=== PATIENT | female | born 2000 | race Caucasian/White ===

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

== ENCOUNTER 2021-08-31 01:27 | Inpatient (IN) | payer BC, MEDICAID ==
[2021-08-31] VITALS (64 sets, daily range): BP systolic 102–151; BP diastolic 57–105
[~2021-08-31] VITALS: Ht 170.2 cm; Wt 94.7 kg
[2021-08-31] MEDS ORDERED: D5 LR IV SOLUTION 1,000 ML IV ONE (03:40)
[2021-08-31] MEDS ORDERED: LIDOCAINE/EPI 2% 1:200,00 (XYLOCAINE) 20 ML VIAL INJ PRN (03:45)
[2021-08-31] MEDS ORDERED: MINERAL OIL CONCENTRATE 99.9% 15 ML UDC TOP PRN (03:45)
[2021-08-31] MEDS: D5 LR IV SOLUTION 1,000 ML IV SCH ×2 (03:54→11:46)
[2021-08-31] MEDS ORDERED: BUTORPHANOL INJ 2 MG/ML (STADOL) VIAL ONE (04:30)
[2021-08-31] MEDS ORDERED: BUTORPHANOL INJ 2 MG/ML (STADOL) VIAL IV ONE (04:30)
[2021-08-31 05:17] LABS: BASOPHILS % (AUTO) 0 % (0-10); EOSINOPHILS # (AUTO) 0.1 10^3/uL (0.0-0.3); EOSINOPHILS % (AUTO) 1 % (0-10); HEMATOCRIT 34 % (35-52); LYMPHOCYTES % (AUTO) 29 % (12-44); MEAN CORPUSCULAR HEMOGLOBIN 28 pg (25-34); MEAN CORPUSCULAR HGB CONC 33 g/dL (32-36); MEAN CORPUSCULAR VOLUME 87 fL (80-99); MEAN PLATELET VOLUME 12.6 fL (9.0-12.2); MONOCYTES # (AUTO) 0.7 10^3/uL (0.0-1.0); MONOCYTES % (AUTO) 7 % (0-12); NEUTROPHILS # (AUTO) 6.7 10^3/uL (1.8-7.8); NEUTROPHILS % (AUTO) 63 % (42-75); PLATELET COUNT 248 10^3/uL (130-400); WHITE BLOOD COUNT 10.7 10^3/uL (4.3-11.0)
[2021-08-31] MEDS ORDERED: CATHETER FLUSH 10 ML SYR IV SCH ×2 (06:00→22:00)
[2021-08-31] MEDS ORDERED: OXYTOCIN PRE-MIX DRIP 500 ML IV SCH ×2 (07:30→17:45)
[2021-08-31] MEDS ORDERED: fentaNYL 2 mcg/ml BUPIVA 0.125 100 ML ONE (07:50)
[2021-08-31] MEDS ORDERED: fentaNYL INJ 100 MCG/2 ML AMP ONE (08:03)
[2021-08-31] MEDS ORDERED: BUPIVACAINE 0.25% 30 ML (SENSORCAINE) VIAL ONE (08:03)
[2021-08-31] MEDS ORDERED: KETOROLAC 30 MG/ML VIAL ONE (08:09)
[2021-08-31] MEDS ORDERED: ONDANSETRON 4 MG/2 ML (SDV) Z0FRAN ONE (08:27)
[2021-08-31] MEDS ORDERED: LACTATED RINGERS 1,000 ML IV ONE (10:30)
[2021-08-31] MEDS ORDERED: NALOXONE 0.4 MG/ML 1 ML (NARCAN) VIAL IV PRN (10:30)
[2021-08-31] MEDS ORDERED: CATHETER FLUSH 10 ML SYR IV PRN (10:30)
[2021-08-31] MEDS ORDERED: fentaNYL 2 mcg/ml BUPIVA 0.125 100 ML IV SCH (10:30)
[2021-08-31] MEDS ORDERED: ONDANSETRON 4 MG/2 ML (SDV) Z0FRAN IVP ONE (10:30)
--- NOTE | 2021-08-31 14:39 | Labor Progress Note ---
Labor Progress Note Labor Progress Note Date Seen by Provider: Aug 31, 2021 Time Seen by Provider: 14:10 Subjective: Pt denies complaints. Objective: Cervical exam: 6.5/75/-3 Consistency: soft Position: anterior Presentation: vertex heart tones: 140 beats per minute, moderate variability, reactive Tocometer: 4 ctx/10 minutes Assessment/Plan: Maureen Causey is a (21 /Para 2 / 1,Gestational Age (wks)39 here for labor. CEFM/TOCO Continue pitocin/AROM done at time of exam with clear fluid Anesthesia: Epidural Anticipate vaginal delivery. Vitals - Labs Vital Signs - I&O Vital Signs Date Time Temp Pulse Resp B/P (MAP) Pulse Ox O2 Delivery O2 Flow Rate FiO2 08/31/21 12:43 83 18 111/64 (80) Room Air 08/31/21 12:28 81 18 115/66 (82) Room Air 08/31/21 12:15 89 18 118/70 (86) Room Air 08/31/21 11:59 96 18 121/79 (93) Room Air 08/31/21 11:46 37.0 08/31/21 11:43 98 18 132/75 (94) 99 Room Air 08/31/21 11:29 86 18 127/67 (87) 98 Room Air 08/31/21 11:12 91 18 130/64 (86) 99 Room Air 08/31/21 10:58 84 18 126/75 (92) 98 Room Air 08/31/21 10:42 76 18 119/67 (84) 99 Room Air 08/31/21 10:29 70 18 125/70 (88) 98 Room Air 08/31/21 10:13 77 18 128/74 (92) 99 Room Air 08/31/21 09:58 98 18 131/77 (95) 99 Room Air 08/31/21 09:44 77 18 124/71 (88) 99 Room Air 08/31/21 09:28 82 18 127/71 (89) 99 Room Air 08/31/21 09:08 91 18 118/78 (91) 99 Room Air 08/31/21 09:03 88 18 115/73 (87) 100 Room Air 08/31/21 08:58 80 18 123/67 (85) 99 Room Air 08/31/21 08:52 79 18 120/68 (85) 98 Room Air 08/31/21 08:47 81 18 119/66 (83) 97 Room Air 08/31/21 08:44 73 18 121/67 (85) 96 Room Air 08/31/21 08:39 85 18 114/64 (81) 98 Room Air 08/31/21 08:31 75 18 118/58 (78) Room Air 08/31/21 08:28 67 18 122/57 (78) 97 Room Air 08/31/21 08:25 81 18 124/75 (91) Room Air 08/31/21 08:22 87 18 127/80 (96) Room Air 08/31/21 08:19 95 18 128/83 (98) 99 Room Air 08/31/21 08:16 82 18 136/84 (101) 98 Room Air 08/31/21 08:13 80 145/81 (102) 100 Room Air 08/31/21 08:10 81 18 143/97 (112) 100 Room Air 08/31/21 07:30 37.1 08/31/21 04:26 37.4 91 18 151/77 (101) Room Air 08/31/21 03:56 37.1 96 18 133/83 (100) Room Air 08/31/21 02:05 90 18 140/81 (100) Room Air 08/31/21 02:00 36.7 103 18 99 Room Air 08/31/21 02:00 36.7 103 18 99 Room Air 08/31/21 02:00 36.7 103 18 146/90 (108) 99 Room Air Labs Laboratory Tests 08/31/21 04:10: White Blood Count 10.7, Red Blood Count 3.87, Hemoglobin 11.0L, Hematocrit 34L, Mean Corpuscular Volume 87, Mean Corpuscular Hemoglobin 28, Mean Corpuscular Hemoglobin Concent 33, Red Cell Distribution Width 14.7H, Platelet Count 248, Mean Platelet Volume 12.6H, Immature Granulocyte % (Auto) 1, Neutrophils (%) (Auto) 63, Lymphocytes (%) (Auto) 29, Monocytes (%) (Auto) 7, Eosinophils (%) (Auto) 1, Basophils (%) (Auto) 0, Neutrophils # (Auto) 6.7, Lymphocytes # (Auto) 3.0, Monocytes # (Auto) 0.7, Eosinophils # (Auto) 0.1, Basophils # (Auto) 0.0, Immature Granulocyte # (Auto) 0.1 HARSH STEVENS MD Aug 31, 2021 14:39
[2021-08-31] MEDS ORDERED: LIDOCAINE 1% INJ 20 ML 20 ML VIAL ONE (16:30)
[2021-08-31] MEDS ORDERED: METHYLERGONOVINE 0.2 MG/ML (METHERGINE) AMP ONE (16:38)
--- NOTE | 2021-08-31 17:23 | History & Physical-OB ---
OB - Chief Complaint & HPI Date/Time Date of Admission: Date of Admission: Aug 31, 2021 at 03:18 Date seen by a Provider: Aug 31, 2021 Time Seen by a Provider: 15:48 Chief Complaint/History OB-Reason for Admission/Chief: Onset of Labor Hx : 2 Hx Para: 1 Expected Date of Delivery: Sep 01, 2021 Gestational Age in Weeks: 40 Gestational Age in Days: 0 History of Labs A+, Ab neg, Rub NON IMMUNE HIV/RPR/HepB/C GTT Normal GBS Neg Allergies and Home Medications Allergies Uncoded Allergies: sulfa (Allergy, Unknown, rash, 08/27/19) Patient Home Medication List Home Medication List Reviewed: Yes OB - History Hx of Present Care: Yes Ultrasounds: Normal mid trimester US Obstetrical Complications: None Medical Complications: None Information Induced Hypertension: No Maternal Gestational Diabetes: No Hemorrhage: No Obstetrical History Hx : 2 Hx Para: 1 Hx # Term Pregnancies: 1 Number of Living Children: 1 Hx Total # of Abortions (Spona: 1 Delivery History Hx Dystocia: No Hx Forceps Assisted Delivery: No Hx Vacuum Extraction Assisted: No Hx Placenta Abnormality: No Hx Distress: No Hx Large For Gestational Age I: No Hx Small for Gestational Age I: No Hx Section: No Hx Vaginal Delivery Post C-Sec: No Hx Blood Disorders: No Adverse Rxn to Tranfusion: No Patient Past Medical History None Social History/Family History Alcohol Use: Denies Use Recreational Drug Use: No 2nd Hand Smoke Exposure: No Immunizations Tetanus Booster (TDap): Less than 5yrs (06/17/21) Rubella: not immune RPR/VDRL: Negative GBS Status: Negative HBsAG: Negative OB - Admission Exam Physical Exam Vitals: Vital Signs 08/31/21 08/31/21 08/31/21 11:43 15:05 15:12 Temp 37.2 Pulse 101 Resp 18 B/P (MAP) 127/68 (87) Pulse Ox 99 O2 Delivery Room Air HEENT: NCAT Heart: Rhythm Normal Lungs: Clear Abdomen: Gravid Cervical Dilatation: 10cm Effacement: 100% Station: +1 Membranes: Ruptured Amniotic Fluid: Clear Heart Rate: 130's Accelerations: Accelerations Present Decelerations: Early Decelerations Short Term Variability: Present Shelter Variability: Average (6-25) Contractions on Admission: < 5 Minutes Apart Intensity: Firm Labs Laboratory Tests Test 08/31/21 04:10 Range/Units White Blood Count 10.7 4.3-11.0 10^3/uL Red Blood Count 3.87 3.80-5.11 10^6/uL Hemoglobin 11.0 L 11.5-16.0 g/dL Hematocrit 34 L 35-52 % Mean Corpuscular Volume 87 80-99 fL Mean Corpuscular Hemoglobin 28 25-34 pg Mean Corpuscular Hemoglobin Concent 33 32-36 g/dL Red Cell Distribution Width 14.7 H 10.0-14.5 % Platelet Count 248 130-400 10^3/uL Mean Platelet Volume 12.6 H 9.0-12.2 fL Immature Granulocyte % (Auto) 1 % Neutrophils (%) (Auto) 63 42-75 % Lymphocytes (%) (Auto) 29 12-44 % Monocytes (%) (Auto) 7 0-12 % Eosinophils (%) (Auto) 1 0-10 % Basophils (%) (Auto) 0 0-10 % Neutrophils # (Auto) 6.7 1.8-7.8 10^3/uL Lymphocytes # (Auto) 3.0 1.0-4.0 10^3/uL Monocytes # (Auto) 0.7 0.0-1.0 10^3/uL Eosinophils # (Auto) 0.1 0.0-0.3 10^3/uL Basophils # (Auto) 0.0 0.0-0.1 10^3/uL Immature Granulocyte # (Auto) 0.1 0.0-0.1 10^3/uL OB - Assessment/Plan/Diagnosis Assessment Assessment: active labor Admission Dx Third Trimester 40 week gestation Active labor Admission Status: Inpatient Order (span 2 midnights) Reason for Inpatient Admission: Labor Plan Other Plan 21 yo @ 40.0 wga here in active labor Plan - Epidural for pain control - GBS neg - Augmented labor with pitocin Copy Copies To 1: KELLY NERI MD, HOLLY R MD Aug 31, 2021 17:23
--- NOTE | 2021-08-31 17:31 | OB Labor & Delivery Record ---
Vag Delivery Note Vag Delivery Note Date of Delivery: 08/31/21 Preoperative Diagnosis: Maureen Causey is a (21 /Para 2 / 1,Gestational Age (wks)40.0 wga here in active labor Postoperative Diagnosis: Same Surgeon: KELLY DE LA CRUZ MD Finished Cigar Maker: None Anesthesia: Epidural Delivery Type: @ 1620 Findings: Viable female infant, apgars 9/9, weight 8#9, 3870 grams Lacerations: 3rd degree laceration Intact placenta with 3 vessel cord. No nuchal cord, body cord or shoulder dystocia Cytotec 800 mcg placed for hemorrhage prophylaxis Estimated Blood Loss: 1245 ml, weighed weight with PPH cart Complications: PPH Condition: Stable Description of Procedure: The patient is a 21 year old female who presented in active. She was admitted and informed consent was obtained. Her labor course was unremarkable. She progressed to complete dilatation and began to push. She was then set up for delivery. The infant's head was delivered atraumatically in the OP position. The shoulders and remainder of the 's body were then delivered without difficulty. Upon delivery, the head was held below the level of the perineum and the mouth and nares were bulb suctioned. The cord was doubly clamped and cut after 4 min delay by FOB and the was attended to on maternal abdomen by the pediatric staff, was then moved to warmer when PPH was called. An intact placenta with 3-vessel cord delivered via Vijaya and there was found to be moderate bleeding.~ Vigorous fundal massage was performed and the fundus was found to be boggy. Cytotec was given due to IV not flushing. PPH cart was called for by Dr De La Cruz and additional nursing staff to replace IV. Patient given dose of Methergin and vigorous fundal massage was continued and uterus started firming up after doses of cytotec and methergin and once IV was useable Pitocin was started. VS remained stable and patient was given a bolus of IVFs x 500cc. Examination of the vagina and perineum revealed a 3rd degree laceration repaired in the usual fashion with 3-0 vicryl suture. Following the repair, sponge, instrument and needle counts were correct. Mom and baby were both in stable condition in the labor suite. Vitals - Labs Vital Signs - I&O Vital Signs Date Time Temp Pulse Resp B/P (MAP) Pulse Ox O2 Delivery O2 Flow Rate FiO2 11/22/21 15:12 101 18 127/68 (87) Room Air 08/31/21 15:05 37.2 08/31/21 14:57 94 18 129/74 (92) Room Air 08/31/21 14:43 37.0 08/31/21 14:42 37.0 90 18 136/81 (99) Room Air 08/31/21 14:27 89 18 140/83 (102) Room Air 08/31/21 13:58 36.8 109 18 124/78 (93) Room Air 08/31/21 13:42 85 18 113/69 (84) Room Air 08/31/21 13:27 87 18 109/60 (76) Room Air 08/31/21 13:12 78 18 107/60 (76) Room Air 08/31/21 12:57 80 18 107/61 (76) Room Air 08/31/21 12:43 83 18 111/64 (80) Room Air 08/31/21 12:28 81 18 115/66 (82) Room Air 08/31/21 12:15 89 18 118/70 (86) Room Air 08/31/21 11:59 96 18 121/79 (93) Room Air 08/31/21 11:46 37.0 08/31/21 11:43 98 18 132/75 (94) 99 Room Air 08/31/21 11:29 86 18 127/67 (87) 98 Room Air 08/31/21 11:12 91 18 130/64 (86) 99 Room Air 08/31/21 10:58 84 18 126/75 (92) 98 Room Air 08/31/21 10:42 76 18 119/67 (84) 99 Room Air 08/31/21 10:29 70 18 125/70 (88) 98 Room Air 08/31/21 10:13 77 18 128/74 (92) 99 Room Air 08/31/21 09:58 98 18 131/77 (95) 99 Room Air 08/31/21 09:44 77 18 124/71 (88) 99 Room Air 08/31/21 09:28 82 18 127/71 (89) 99 Room Air 08/31/21 09:08 91 18 118/78 (91) 99 Room Air 08/31/21 09:03 88 18 115/73 (87) 100 Room Air 08/31/21 08:58 80 18 123/67 (85) 99 Room Air 08/31/21 08:52 79 18 120/68 (85) 98 Room Air 08/31/21 08:47 81 18 119/66 (83) 97 Room Air 08/31/21 08:44 73 18 121/67 (85) 96 Room Air 08/31/21 08:39 85 18 114/64 (81) 98 Room Air 08/31/21 08:31 75 18 118/58 (78) Room Air 08/31/21 08:28 67 18 122/57 (78) 97 Room Air 08/31/21 08:25 81 18 124/75 (91) Room Air 08/31/21 08:22 87 18 127/80 (96) Room Air 08/31/21 08:19 95 18 128/83 (98) 99 Room Air 08/31/21 08:16 82 18 136/84 (101) 98 Room Air 08/31/21 08:13 80 145/81 (102) 100 Room Air 08/31/21 08:10 81 18 143/97 (112) 100 Room Air 08/31/21 07:30 37.1 08/31/21 04:26 37.4 91 18 151/77 (101) Room Air 08/31/21 03:56 37.1 96 18 133/83 (100) Room Air 08/31/21 02:05 90 18 140/81 (100) Room Air 08/31/21 02:00 36.7 103 18 99 Room Air 08/31/21 02:00 36.7 103 18 99 Room Air 08/31/21 02:00 36.7 103 18 146/90 (108) 99 Room Air Labs Laboratory Tests 08/31/21 04:10: White Blood Count 10.7, Red Blood Count 3.87, Hemoglobin 11.0L, Hematocrit 34L, Mean Corpuscular Volume 87, Mean Corpuscular Hemoglobin 28, Mean Corpuscular Hemoglobin Concent 33, Red Cell Distribution Width 14.7H, Platelet Count 248, Mean Platelet Volume 12.6H, Immature Granulocyte % (Auto) 1, Neutrophils (%) (Auto) 63, Lymphocytes (%) (Auto) 29, Monocytes (%) (Auto) 7, Eosinophils (%) (Auto) 1, Basophils (%) (Auto) 0, Neutrophils # (Auto) 6.7, Lymphocytes # (Auto) 3.0, Monocytes # (Auto) 0.7, Eosinophils # (Auto) 0.1, Basophils # (Auto) 0.0, Immature Granulocyte # (Auto) 0.1 KELLY DE LA CRUZ MD Aug 31, 2021 17:31
[2021-08-31] MEDS ORDERED: WITCH HAZEL(TUCKS) 40 EA JAR TOP PRN (17:45)
[2021-08-31] MEDS ORDERED: METHYLERGONOVINE 0.2 MG/ML (METHERGINE) AMP IM PRN (17:45)
[2021-08-31] MEDS ORDERED: BENZOCAINE/MENTHOL (DERMOPLAST) 56 ML CAN TP PRN (17:45)
[2021-08-31] MEDS ORDERED: MEASLES,MUMPS,RUBELLA 1 EA INJ SQ ONE (17:45)
[2021-08-31 19:25] LABS: HEMOGLOBIN 9.6 g/dL (11.5-16.0)
[2021-08-31] MEDS: IBUPROFEN 600 MG (MOTRIN) TAB PO SCH (22:22)
[2021-08-31] MEDS: DOCUSATE SODIUM 100 MG (COLACE) CAP PO SCH (22:22)
[2021-09-01 00:20] VITALS: BP 123/74
[2021-09-01 04:37] VITALS: BP 121/80
[2021-09-01] MEDS: IBUPROFEN 600 MG (MOTRIN) TAB PO SCH ×3 (04:39→18:30)
[2021-09-01] MEDS ORDERED: PRENATAL VITAMIN 1 EA TAB PO SCH (07:00)
[2021-09-01] MEDS ORDERED: PNV1TABL67 PO (07:54)
[2021-09-01] MEDS ORDERED: IBUP-844 PO (07:54)
[2021-09-01] MEDS ORDERED: FERR325T24 PO (07:54)
[2021-09-01] MEDS ORDERED: DOCU100C37 PO (07:54)
[2021-09-01 08:23] LABS: BASOPHILS % (AUTO) 0 % (0-10); EOSINOPHILS # (AUTO) 0.1 10^3/uL (0.0-0.3); EOSINOPHILS % (AUTO) 1 % (0-10); HEMATOCRIT 24 % (35-52); HEMOGLOBIN 7.5 g/dL (11.5-16.0); LYMPHOCYTES # (AUTO) 2.8 10^3/uL (1.0-4.0); LYMPHOCYTES % (AUTO) 29 % (12-44); MEAN CORPUSCULAR HEMOGLOBIN 28 pg (25-34); MEAN CORPUSCULAR HGB CONC 32 g/dL (32-36); MEAN CORPUSCULAR VOLUME 88 fL (80-99); MEAN PLATELET VOLUME 11.4 fL (9.0-12.2); MONOCYTES # (AUTO) 0.7 10^3/uL (0.0-1.0); MONOCYTES % (AUTO) 7 % (0-12); NEUTROPHILS % (AUTO) 62 % (42-75); PLATELET COUNT 156 10^3/uL (130-400); WHITE BLOOD COUNT 9.7 10^3/uL (4.3-11.0)
[2021-09-01 08:52] VITALS: BP 119/84
[2021-09-01] MEDS: ACETAMINOPHEN 500 MG TAB (TYLENOL) PO SCH ×2 (12:00→18:30)
[2021-09-01] MEDS: DOCUSATE SODIUM 100 MG (COLACE) CAP PO SCH ×2 (12:00→20:15)
[2021-09-01] MEDS: FERROUS SULF 325 MG (IRON) TAB PO SCH (12:00)
[2021-09-01 14:12] VITALS: BP 121/78
--- NOTE | 2021-09-01 14:58 | Anesthesia-Regional Post-Op ---
Regional Patient Condition Mental Status: Alert, Oriented x3 Circulation: Same as Pre-Op Headache: Absent Sensation: Full Recovery Motor Block: Absent Post Op Complications Complications None Follow Up Care/Instructions Patient Instructions None needed. Anesthesia/Patient Condition Patient is doing well, no complaints, stable vital signs, no apparent adverse anesthesia problems. ANGELLA MILLIGAN DO Sep 01, 2021 14:58
[2021-09-01] MEDS ORDERED: NS IV 500 ML 500 ML IV ONE (16:38)
--- NOTE | 2021-09-01 18:57 | Progress Note ---
Subjective Subjective/Events-last exam PP day 1, s/p with third degree laceration and hemorrhage. States doing well, denies dizziness, chest pain, shortness of breath and says bleeding is minimal. Objective Exam Last Set of Vital Signs Vital Signs Date Time Temp Pulse Resp B/P (MAP) Pulse Ox O2 Delivery O2 Flow Rate FiO2 09/01/21 15:47 36.8 09/01/21 14:12 95 18 121/78 (92) 97 Room Air Capillary Refill : Less Than 3 Seconds I&O Intake and Output 09/01/21 00:00 Intake Total 2000 ml Output Total 1245 ml Balance 755 ml Intake IV Total 2000 ml Output Blood Loss 1245 ml Daily Weight Change No General: Alert, No Acute Distress Lungs: Clear to Auscultation, Normal Air Movement Heart: Regular Rate, No Murmurs Abdomen: Other (Fundus appropriately ttp, below umbilicus) Extremities: No Edema Neuro: Normal Speech Psych/Mental Status: Mood NL Results/Procedures Lab Laboratory Tests 08/31/21 19:15: Hemoglobin 9.6L, Hematocrit 30L 09/01/21 08:15: Hemoglobin 7.5#L, Hematocrit 24L, White Blood Count 9.7, Red Blood Count 2.67L, Mean Corpuscular Volume 88, Mean Corpuscular Hemoglobin 28, Mean Corpuscular Hemoglobin Concent 32, Red Cell Distribution Width 14.7H, Platelet Count 156, Mean Platelet Volume 11.4, Immature Granulocyte % (Auto) 1, Neutrophils (%) (Auto) 62, Lymphocytes (%) (Auto) 29, Monocytes (%) (Auto) 7, Eosinophils (%) (Auto) 1, Basophils (%) (Auto) 0, Neutrophils # (Auto) 6.0, Lymphocytes # (Auto) 2.8, Monocytes # (Auto) 0.7, Eosinophils # (Auto) 0.1, Basophils # (Auto) 0.0, Immature Granulocyte # (Auto) 0.1 Assessment/Plan Assessment/Plan (1) (spontaneous vaginal delivery) Status: Acute Assessment & Plan: Routine care (2) hemorrhage Status: Acute Assessment & Plan: Received cytotec and methergine after delivery. Doing well, stable vitals and minimal bleeding. Hemoglobin down to 7.5 this am, will give a dose of IV iron. (3) Third degree laceration of perineum during delivery, Status: Acute Assessment & Plan: Repaired at delivery, continue stool softeners. (4) Rubella nonimmune status, delivered, current hospitalization Status: Acute Assessment & Plan: MMR HARSH STEVENS MD Sep 01, 2021 18:57
[2021-09-01] MEDS ORDERED: IRON SUCROSE 200 MG/10 ML (VENOFER) VIAL IV ONE (19:00)
[2021-09-01 21:00] VITALS: BP 120/58
[2021-09-02 01:12] VITALS: BP 100/55
[2021-09-02] MEDS: IBUPROFEN 600 MG (MOTRIN) TAB PO SCH ×2 (01:19→08:47)
[2021-09-02] MEDS: ACETAMINOPHEN 500 MG TAB (TYLENOL) PO SCH ×2 (01:20→08:48)
[2021-09-02 06:57] LABS: HEMATOCRIT 24 % (35-52); HEMOGLOBIN 7.7 g/dL (11.5-16.0); MEAN CORPUSCULAR HEMOGLOBIN 29 pg (25-34); MEAN CORPUSCULAR HGB CONC 32 g/dL (32-36); MEAN CORPUSCULAR VOLUME 89 fL (80-99); MEAN PLATELET VOLUME 12.3 fL (9.0-12.2); PLATELET COUNT 189 10^3/uL (130-400); WHITE BLOOD COUNT 8.5 10^3/uL (4.3-11.0)
[2021-09-02] MEDS: FERROUS SULF 325 MG (IRON) TAB PO SCH (08:48)
[2021-09-02] MEDS: DOCUSATE SODIUM 100 MG (COLACE) CAP PO SCH (08:48)
[2021-09-02 08:52] VITALS: BP 134/82
--- NOTE | 2021-09-02 11:54 | Discharge Summary ---
Discharge Summary Hospital Course Problems/Diagnosis: (1) (spontaneous vaginal delivery) Status: Acute Assessment & Plan: Routine care (2) hemorrhage Status: Acute Assessment & Plan: Received cytotec and methergine after delivery. Doing well, stable vitals and minimal bleeding. Hemoglobin down to 7.5 day after delivery, given IV iron, hemoglobin 7.7 on day of d/c. (3) Third degree laceration of perineum during delivery, Status: Acute Assessment & Plan: Repaired at delivery, continue stool softeners. (4) Rubella nonimmune status, delivered, current hospitalization Status: Acute Assessment & Plan: MMR ordered, patient declined, stated she would think about getting it at clinic. Hospital Course Date of Admission: Aug 31, 2021 at 03:18 Admission Diagnosis : Family Physician/Provider: No,Local Physician Date of Discharge: 09/02/21 Discharge Diagnosis: [ ] Hospital Course: [ ] Labs and Pending Lab Test: Laboratory Tests 09/02/21 06:00: White Blood Count 8.5, Red Blood Count 2.69L, Hemoglobin 7.7L, Hematocrit 24L, Mean Corpuscular Volume 89, Mean Corpuscular Hemoglobin 29, Mean Corpuscular Hemoglobin Concent 32, Red Cell Distribution Width 15.1H, Platelet Count 189, Mean Platelet Volume 12.3H Home Meds Active Pnv Plus Multivit Tab (Pnv with Ca,No.72/Iron/FA) 1 Each Tablet 1 Ea PO DAILY@0700 Docusate Sodium 100 Mg Capsule 100 Mg PO BID Ibu (Ibuprofen) 600 Mg Tablet 600 Mg PO Q6HR PRN Ferosul (Ferrous Sulfate) 325 Mg Tablet 325 Mg PO DAILY Assessment/Pt DC Instructions Follow up with Dr. De La Cruz in 6 weeks. Discharge Diet: No Restrictions Activity as Tolerated: Yes (avoid strenuous activity x 6 weeks) Discharge Physical Examination Allergies: Uncoded Allergies: sulfa (Allergy, Unknown, rash, 08/27/19) General Appearance: No Apparent Distress, WD/WN Respiratory: Lungs Clear, Normal Breath Sounds Cardiovascular: Regular Rate, Rhythm, No Murmur Gastrointestinal: Other (fundus firm below umbilicus) Extremity: No Pedal Edema Skin: Normal Color, Warm/Dry Neurologic/Psychiatric: Alert, Normal Mood/Affect HARSH STEVENS MD Sep 02, 2021 11:54
== END 2021-09-02 12:40 | disposition home or self-care (01) | DRG 768 ==
LOC: WSo 01:27 → LDRP 01:28 → WSo 03:17 → LDRP 03:18
PROVIDERS: ADMIT Family Medicine; ATTEND Family Medicine
PROC: 10E0XZZ Delivery of Products of Conception, External Approach (ICD-10-PCS; principal; 2021-08-31)
PROC: 0DQR0ZZ Repair Anal Sphincter, Open Approach (ICD-10-PCS; 2021-08-31)
PROC: 10907ZC Drainage of Amniotic Fluid, Therapeutic from Products of Conception, Via Natural or Artificial Opening (ICD-10-PCS; 2021-08-31)
DX: O70.20 Third degree perineal laceration during delivery, unspecified (principal); Z37.0 Single live birth; O72.1 Other immediate postpartum hemorrhage; Z3A.40 40 weeks gestation of pregnancy; Z88.2 Allergy status to sulfonamides
CPT/HCPCS: 36415; 85014; 85018; 85025; 85027; 86850; 86900; 86901; 99212